=== PATIENT | female | born 2005 | race Caucasian/White ===

== ENCOUNTER 2024-09-25 13:03 | Emergency (ER) | payer BC, MEDICAID ==
[~2024-09-25] VITALS: Ht 170.2 cm; Wt 48.1 kg
[~2024-09-25 13:03] MED LIST: NO HOME MEDS; ONDA-243 PO
[2024-09-25 13:23] VITALS: BP 122/74; PULSE 101; RESP 18; TEMP 97.8; O2SAT 97
--- NOTE | 2024-09-25 14:14 | Physician Documentation ---
History of Present Illness General Chief Complaint: Headache Stated Complaint: LUMP ON NECK Time Seen by MD: 13:52 Primary Medical Doctor: NONE History of Present Illness Initial Comments This is a 19-year-old female who presents with concern of weight loss over the last five months and more frequent migraines, patient reports that she was seen at an urgent care or later today who advised her that she had a lump on the back of her neck as well. Patient reports that while at the urgent care for these concerns she was advised that she needed to follow up with the primary care provider or present to the emergency department. Currently patient reports no symptoms and reports last migraine was in August. Patient reports no recent vomiting or diarrhea though reports she has had appetite issues and is seeing a therapist for this. Medication Reconciliation Allergies: Coded Allergies: No Known Allergies (Unverified , 09/25/24) Scheduled PRN ONDANSETRON ODT 4mg tablet (Ondansetron Odt), 1 TABLET PO Q6H PRN for nausea/vomiting Miscellaneous Medications Home Med List (No Home Medications), (Reported) Past Medical History Past Medical History: No Pertinent History Past Surgical History: tonsillectomy Other Past Family History: Both parents: migraines Smoking: Non-Smoker Alcohol Use: None Drug Use: none Lives with: Family Lives In: Home Occupation: child Review of Systems ROS Periodic headaches and weight loss as stated above in the HPI, otherwise all systems are reviewed and negative. Physical Exam Physical Exam Vital Signs: Temperature: 97.8, Source: Temporal, Heart Rate: 101, Respiratory Rate: 18, BP: 122/74, Pulse Oximetry: 97, Weight: 48.100 Physical Exam VITALS: Reviewed and as above. GENERAL: Alert, nontoxic appearing, no apparent distress. HEENT: Tense posterior cervical muscle palpated to the posterior left neck, no mass palpable to posterior neck or scalp RESPIRATORY: No increased work of breathing, no respiratory distress, speaking in full clear sentences Progress Results/Orders Results/Orders Vital Signs 09/25/24 13:23 Temp 97.8 Pulse 101 Resp 18 B/P (MAP) 122/74 Pulse Ox 97 Medical Decision Making Findings This 19-year-old female presented with concern for increasing frequent migraines and unintended weight loss over the last proximally five months. Patient reported no current headache symptoms and last headache was in mid August therefore there no treatment or imaging indicated, patient will require outpatient follow up with the primary care provider for further workup of migraine symptoms. Patient's unexpected weight loss is without diarrhea, or v omiting, of note patient reported recent history of poor appetite which she is seeing a therapist four, this is the most likely cause of patient's unintended weight loss though this will be better worked up outpatient. Patient directed to follow up with the primary care provider which he verbalized understanding of. Patient provided return to care precautions which she verbalized understanding of. Differential Diagnosis Migraine, headache, cervical muscle spasm, vomiting, anorexia, bulimia Departure Time of Disposition: 14:14 Disposition: 01 HOME / SELF CARE / HOMELESS Impression: Primary Impression: Excessive weight loss Condition: Improved Discharge Instructions: Chronic Migraine Headache, [id number] Additional Instructions: Unfortunately as you are not currently having symptoms it is difficult to workup your continuing headache symptoms and recent weight loss, this will require follow up with a primary care provider. I was unable to palpate a mass on the back of your neck though I did appreciate some muscle tension which may also be related to your headaches. Please establish with and follow up with a primary care provider as soon as you can. Please return to the emergency department for any new or worsening concerning symptoms including but not limited to if you develop a headache, nausea, vomiting, diarrhea, or a fever over 100.4 that does not lower with ibuprofen or Tylenol. Referrals: NO PRIMARY CARE PROVIDER (PCP) Education Educated: Patient Educated regarding: diagnosis, treatment, prognosis, need for follow up Signature Scribe Signature: No scribe Attestation: The note accurately reflects work and decisions made by me.KINA Farrell 09/26/24 03:40 STACEY GLOVER September 25, 2024 14:14
== END 2024-09-25 14:25 | disposition home or self-care (01) ==
LOC: ER 13:03
DX: R63.4 Abnormal weight loss (principal); G43.909 Migraine, unspecified, not intractable, without status migrainosus; R22.1 Localized swelling, mass and lump, neck; Z90.89 Acquired absence of other organs
CPT/HCPCS: 99281